=== PATIENT | male | born 1995 | race Caucasian/White ===

== ENCOUNTER 2017-10-10 13:15 | Emergency (ER) | payer OTHER ==
[~2017-10-10] VITALS: Ht 180.3 cm; Wt 72.5 kg
[2017-10-10] MEDS ORDERED: acetaminophen 325mg tablet PO ONE (14:15)
[2017-10-10] MEDS ORDERED: BUPIVAcaine/PF 2.5 mg/ml (0.25%) 30ml vial IJ ONE (14:15)
[2017-10-10] MEDS ORDERED: ibuprofen 200mg tablet PO ONE (14:15)
[2017-10-10] MEDS ORDERED: CEPH500C2 PO (16:12)
[2017-10-10 16:37] VITALS: BP 121/65
== END 2017-10-10 16:48 | disposition home or self-care (01) ==
LOC: ER 13:16
DX: S61.212A Laceration without foreign body of right middle finger without damage to nail, initial encounter (principal); W22.8XXA Striking against or struck by other objects, initial encounter; Y93.89 Activity, other specified; Y92.89 Other specified places as the place of occurrence of the external cause; Y99.8 Other external cause status
CPT/HCPCS: 12001; 73130; 99284; A6222; A6449; J3490

== ENCOUNTER 2017-10-16 13:42 | Outpatient (CLI) | payer OTHER ==
[~2017-10-16 13:42] MED LIST: CEPH500C2 PO
[2017-10-16 13:43] VITALS: BP 123/61
[2017-10-16 17:29] VITALS: BP 123/61
== END 2017-10-16 13:57 | disposition home or self-care (01) ==
LOC: ORTHO 13:42
PROVIDERS: ATTEND Nurse Practitioner Family
DX: S66.529A Laceration of intrinsic muscle, fascia and tendon of unspecified finger at wrist and hand level, initial encounter (principal); S61.209A Unspecified open wound of unspecified finger without damage to nail, initial encounter
CPT/HCPCS: 29125; 99213

== ENCOUNTER 2017-11-26 09:06 | Outpatient (CLI) | payer OTHER ==
[~2017-11-26 09:06] MED LIST changes: -CEPH500C2 PO; +NO HOME MEDS
== END 2017-11-26 10:03 | disposition home or self-care (01) ==
LOC: ORTHO 09:06
PROVIDERS: ATTEND Nurse Practitioner Family
DX: S66.52 Laceration of intrinsic muscle, fascia and tendon of other and unspecified finger at wrist and hand level (principal); X58.XXXD Exposure to other specified factors, subsequent encounter
CPT/HCPCS: 99213; A6449

== ENCOUNTER 2017-12-04 11:39 | Outpatient (CLI) | payer OTHER | END 2017-12-04 12:30 | disposition home or self-care (01) | LOC: ORTHO 11:39 | PROVIDERS: ATTEND Nurse Practitioner Family | DX: S66.52 Laceration of intrinsic muscle, fascia and tendon of other and unspecified finger at wrist and hand level (principal); S61.209D Unspecified open wound of unspecified finger without damage to nail, subsequent encounter; X58.XXXD Exposure to other specified factors, subsequent encounter | CPT/HCPCS: 99213; A6449 ==

== ENCOUNTER 2017-12-24 10:36 | Outpatient (CLI) | payer OTHER | END 2017-12-24 11:20 | disposition home or self-care (01) | LOC: ORTHO 10:36 | PROVIDERS: ATTEND Nurse Practitioner Family | DX: S56.42 Laceration of extensor muscle, fascia and tendon of other and unspecified finger at forearm level (principal); S61.202D Unspecified open wound of right middle finger without damage to nail, subsequent encounter; W01.0XXD Fall on same level from slipping, tripping and stumbling without subsequent striking against object, subsequent encounter; Y93.89 Activity, other specified; Y92.810 Car as the place of occurrence of the external cause; Y99.8 Other external cause status | CPT/HCPCS: 99213 ==

== ENCOUNTER → 2018-01-15 | Outpatient (CLI) | payer OTHER ==
[2018-01-15 13:05] VITALS: BP 138/79
== END | disposition home or self-care (01) ==
LOC: ORTHO 13:00
PROVIDERS: ATTEND Nurse Practitioner Family
DX: S56.429D Laceration of extensor muscle, fascia and tendon of unspecified finger at forearm level, subsequent encounter (principal)
CPT/HCPCS: 99213

== ENCOUNTER 2018-03-12 14:08 | Outpatient (CLI) | payer OTHER | END 2018-03-12 14:19 | disposition home or self-care (01) | LOC: ORTHO 14:08 | PROVIDERS: ATTEND Nurse Practitioner Family | DX: S56.429D Laceration of extensor muscle, fascia and tendon of unspecified finger at forearm level, subsequent encounter (principal); S61.209D Unspecified open wound of unspecified finger without damage to nail, subsequent encounter; W01.0XXD Fall on same level from slipping, tripping and stumbling without subsequent striking against object, subsequent encounter | CPT/HCPCS: 99212 ==